=== PATIENT | male | born 1990 | race African-American/Black ===

== ENCOUNTER 2023-01-03 10:24 | Inpatient (IN) | payer OTHER ==
[~2023-01-03] VITALS: Ht 175.3 cm; Wt 88.0 kg
[2023-01-03] VITALS (19 sets, daily range): BP systolic 95–136; BP diastolic 62–94; TEMP 97.7–99.1; O2SAT 100
[2023-01-03 11:10] LABS: BASOPHILS % (AUTO) 0.2 % (0.0-2.0)
[2023-01-03 11:13] LABS: HEMATOCRIT 39 % (39-51); LYMPHOCYTES # (AUTO) 1.2 K/uL (0.8-4.8); LYMPHOCYTES % (AUTO) 6.9 % (20.0-44.0); MEAN CORPUSCULAR HEMOGLOBIN 30 PG (26.0-33.0); MEAN CORPUSCULAR HGB CONC 33 g/dl (31.0-36.0); MEAN CORPUSCULAR VOLUME 90 fL (80-96); MONOCYTES # (AUTO) 0.9 K/uL (0.1-1.30); MONOCYTES % (AUTO) 4.9 % (2.0-12.0); NEUTROPHILS # (AUTO) 15.9 K/uL (1.8-8.9); PLATELET COUNT (AUTO) 304 K/uL (150-450); RED BLOOD CELL COUNT(AUTO) 4.38 MIL/uL (4.5-6.0); RED CELL DISTRIBUTION WIDTH 12.7 % (11.5-15.0); WHITE BLOOD COUNT (AUTO) 18.1 K/uL (4.3-11.0)
[2023-01-03 11:26] LABS: ALANINE AMINOTRANSFERASE 17 U/L (12-78); ALBUMIN 4.2 g/dL (3.4-5.0); ALCOHOL, BLOOD < 3 mg/dL (0-10); ALKALINE PHOSPHATASE 82 U/L (46-116); ASPARTATE AMINOTRANSFERASE 14 U/L (15-37); BILIRUBIN,DIRECT 0.1 mg/dL (0.0-0.2); BILIRUBIN,TOTAL 0.3 mg/dL (0.2-1.0); CALCIUM, SERUM 8.5 mg/dL (8.5-10.1); CARBON DIOXIDE 23 mmol/L (21-32); CHLORIDE 104 mmol/L (98-107); CREATININE 1.2 mg/dL (0.6-1.3); GLUCOSE 166 mg/dL (74-106); POTASSIUM 4.4 mmol/L (3.5-5.1); SODIUM SERUM 137 mmol/L (136-145); TOTAL PROTEIN, SERUM 7.7 g/dL (6.4-8.2); UREA NITROGEN, BLOOD 12 mg/dL (7-18)
[2023-01-03 11:32] LABS: ACETAMINOPHEN <10 ug/ml (10-30); SALICYLATE < 2.3 mg/dL (2.8-20.0)
[2023-01-03] MEDS ORDERED: PROPOFOL 100 ML ONE (11:34)
[2023-01-03] MEDS ORDERED: ROCURONIUM BROMIDE 100 MG/10 ML VIAL IV ONE (12:00)
[2023-01-03] MEDS ORDERED: VANCOMYCIN 1 GM in IV D5W 250 ML IV SCH (12:00)
[2023-01-03] MEDS ORDERED: ETOMIDATE 2 MG/ML VIAL IV ONE (12:00)
[2023-01-03] MEDS ORDERED: PIPERACILLIN /TAZOBACTAM 3.375 G in IV D5W 50 ML IV ONE (12:00)
[2023-01-03] MEDS ORDERED: LEVETIRACETAM (500MG) 1,000 MG in IV NS 0.9% 100 ML IV SCH (12:00)
[2023-01-03] MEDS ORDERED: PROPOFOL 100 ML IV ONE (12:00)
[2023-01-03 12:02] LABS: APPEARANCE,URINE CLEAR (CLEAR); BILIRUBIN,URINE NEGATIVE (NEGATIVE); BLOOD, URINE NEGATIVE Ery/uL (NEGATIVE); COLOR,URINE YELLOW (YELLOW); KETONES,URINE NEGATIVE (NEGATIVE); LEUKOCYTE ESTERASE ,URINE NEGATIVE (NEGATIVE); NITRITE, URINE NEGATIVE (NEGATIVE); PH,URINE 5.5 (5.0-8.0); PROTEIN,URINE NEGATIVE (NEGATIVE); UGLUCOSE NEGATIVE (NEGATIVE); UROBILINOGEN,URINE 0.2 EU/dL (0.2)
[2023-01-03 12:14] LABS: AMPHETAMINE, URINE POSITIVE (NEGATIVE); BARBITURATE, URINE NEGATIVE (NEGATIVE); BENZODIAZEPINE, URINE NEGATIVE (NEGATIVE); CANNABINOID, URINE NEGATIVE (NEGATIVE); COCCAINE, URINE POSITIVE (NEGATIVE); OPIATE, URINE NEGATIVE (NEGATIVE); PHENCYCLIDINE SCREEN,URINE NEGATIVE (NEGATIVE)
[2023-01-03 13:26] LABS: ABG BASE EXCESS -7.5 mmol/L; ABG OXYGEN SATURATION 93.1 % (92.0-98.5); ABG PCO2 41.6 mmHg (35.0-45.0); ABG PH 7.276 (7.350-7.450); ABG PO2 74.1 mmHg (75.0-100.0); ABG TOTAL HEMOGLOBIN 14.8 G/dL (13.5-18.0); COHb 0.7 % (0.5-1.5); MetHb 0.6 % (0.0-1.5); O2Hb 91.9 % (94.0-97.0); PEEP,BG 5 cm H2O; SITE, ABG Right Radial; VENT MODE, BG AC FIO2 100%; VT, ABG 500 mL
[2023-01-03] MEDS ORDERED: ACETAMINOPHEN 325 MG TABLET PO PRN (13:30)
[2023-01-03] MEDS ORDERED: MORPHINE SULFATE INJ 2 MG/ML DISP.SYRIN IV PRN (13:30)
[2023-01-03] MEDS ORDERED: ONDANSETRON HCL/PF 4 MG/2 ML VIAL IVP PRN (13:30)
[2023-01-03] MEDS ORDERED: PROPOFOL 100 ML IV PRN (14:00)
[2023-01-03 14:06] LABS: LACTIC ACID 2.7 mmol/L (0.4-2.0)
[2023-01-03] MEDS: IV NS 0.9% 1,000 ML IV SCH (14:33)
[2023-01-03] MEDS: ENOXAPARIN SODIUM 40 MG/0.4 ML DISP.SYRIN SQ SCH (14:59)
[2023-01-03] MEDS: PROPOFOL 100 ML IV PRN ×5 (15:31→23:57)
[2023-01-03] MEDS: FENTANYL CITRAT IV 2,500 MCG in IV NS 0.9% 200 ML IV PRN (17:15)
[2023-01-03] MEDS: CEFEPIME 2 GM in IV D5W 100 ML IV SCH (20:59)
[2023-01-03] MEDS ORDERED: LEVETIRACETAM (500MG) 500 MG/5 ML VIAL IV ONE (22:16)
[2023-01-03] MEDS: LORAZEPAM INJ 2 MG/ML VIAL IV PRN (23:33)
[2023-01-04] VITALS (43 sets, daily range): BP systolic 86–149; BP diastolic 55–128; TEMP 98.5–102.2; O2SAT 91–100
[2023-01-04] MEDS ORDERED: LEVETIRACETAM (500MG) 1,000 MG in IV NS 0.9% 100 ML IV SCH ×2
[2023-01-04] MEDS ORDERED: VANCOMYCIN 1 GM /D5W 250 ML PB IV ONE (00:46)
[2023-01-04] MEDS ORDERED: VANCOMYCIN 1 GM in IV D5W 250 ML IV SCH (01:00)
[2023-01-04] MEDS: IV NS 0.9% 250 ML IV PRN (01:18)
[2023-01-04] MEDS: IV NS 0.9% 1,000 ML IV SCH ×2 (02:02→16:16)
[2023-01-04] MEDS: PROPOFOL 100 ML IV PRN ×10 (02:54→22:35)
[2023-01-04 04:25] LABS: BASOPHILS % (AUTO) 0.3 % (0.0-2.0); EOSINOPHILS # (AUTO) 0.1 K/uL (0.0-0.7); EOSINOPHILS % (AUTO) 0.7 % (0.0-6.0); HEMATOCRIT 40 % (39-51); HEMOGLOBIN 13.2 g/dL (13.5-17.5); LYMPHOCYTES # (AUTO) 1.7 K/uL (0.8-4.8); LYMPHOCYTES % (AUTO) 11.3 % (20.0-44.0); MEAN CORPUSCULAR HEMOGLOBIN 29 PG (26.0-33.0); MEAN CORPUSCULAR HGB CONC 33 g/dl (31.0-36.0); MEAN CORPUSCULAR VOLUME 90 fL (80-96); MONOCYTES # (AUTO) 0.5 K/uL (0.1-1.30); MONOCYTES % (AUTO) 3.2 % (2.0-12.0); NEUTROPHILS # (AUTO) 12.6 K/uL (1.8-8.9); NEUTROPHILS % (AUTO) 84.5 % (43.0-81.0); PLATELET COUNT (AUTO) 267 K/uL (150-450); RED BLOOD CELL COUNT(AUTO) 4.49 MIL/uL (4.5-6.0); RED CELL DISTRIBUTION WIDTH 12.9 % (11.5-15.0); WHITE BLOOD COUNT (AUTO) 14.9 K/uL (4.3-11.0)
[2023-01-04 04:39] LABS: ALBUMIN 3.2 g/dL (3.4-5.0); BILIRUBIN,TOTAL 0.4 mg/dL (0.2-1.0); CALCIUM, SERUM 8.1 mg/dL (8.5-10.1); CREATININE 1.2 mg/dL (0.6-1.3); MAGNESIUM 1.7 mg/dL (1.8-2.4); PHOSPHORUS 2.8 mg/dL (2.5-4.9); POTASSIUM 3.3 mmol/L (3.5-5.1); TOTAL PROTEIN, SERUM 6.1 g/dL (6.4-8.2)
[2023-01-04] MEDS: LORAZEPAM INJ 2 MG/ML VIAL IV PRN ×3 (05:13→22:26)
[2023-01-04] MEDS: CEFEPIME 2 GM in IV D5W 100 ML IV SCH ×2 (08:06→20:21)
[2023-01-04] MEDS: VANCOMYCIN 1 GM in IV D5W 250 ML IV SCH ×2 (08:55→18:37)
[2023-01-04] MEDS: LEVETIRACETAM (500MG) 1,000 MG in IV NS 0.9% 100 ML IV SCH ×2 (10:09→20:54)
[2023-01-04] MEDS: ACETAMINOPHEN 650 MG/SUPP.RECT RC PRN (10:46)
[2023-01-04] MEDS: Magnesium 1GM/D5W 100ML PREMIX 100 ML IV SCH ×2 (11:14→12:26)
[2023-01-04] MEDS: POTASSIUM CL. PREMIX PERIPHER. 50 ML IV SCH ×2 (12:28→13:33)
[2023-01-04] MEDS: ENOXAPARIN SODIUM 40 MG/0.4 ML DISP.SYRIN SQ SCH (13:36)
[2023-01-04] MEDS ORDERED: ROCURONIUM BROMIDE 50 MG/5 ML IV ONE (17:03)
[2023-01-04] MEDS ORDERED: ETOMIDATE 2 MG/ML VIAL IV ONE (17:03)
[2023-01-04] MEDS: FENTANYL CITRAT IV 2,500 MCG in IV NS 0.9% 200 ML IV PRN (18:03)
[2023-01-05] VITALS (24 sets, daily range): BP systolic 90–129; BP diastolic 54–81; TEMP 97.9–102; O2SAT 92–100
[2023-01-05] MEDS: VANCOMYCIN 1 GM in IV D5W 250 ML IV SCH ×2 (00:36→09:29)
[2023-01-05] MEDS: PROPOFOL 100 ML IV PRN ×11 (00:48→22:36)
[2023-01-05 03:40] LABS: BASOPHILS % (AUTO) 0.4 % (0.0-2.0); EOSINOPHILS # (AUTO) 0.4 K/uL (0.0-0.7); EOSINOPHILS % (AUTO) 3.2 % (0.0-6.0); HEMATOCRIT 39 % (39-51); HEMOGLOBIN 12.7 g/dL (13.5-17.5); LYMPHOCYTES # (AUTO) 1.6 K/uL (0.8-4.8); LYMPHOCYTES % (AUTO) 11.8 % (20.0-44.0); MEAN CORPUSCULAR HEMOGLOBIN 30 PG (26.0-33.0); MEAN CORPUSCULAR HGB CONC 33 g/dl (31.0-36.0); MEAN CORPUSCULAR VOLUME 90 fL (80-96); MONOCYTES # (AUTO) 0.8 K/uL (0.1-1.30); NEUTROPHILS # (AUTO) 10.4 K/uL (1.8-8.9); NEUTROPHILS % (AUTO) 78.6 % (43.0-81.0); PLATELET COUNT (AUTO) 238 K/uL (150-450); RED BLOOD CELL COUNT(AUTO) 4.29 MIL/uL (4.5-6.0); RED CELL DISTRIBUTION WIDTH 12.8 % (11.5-15.0); WHITE BLOOD COUNT (AUTO) 13.2 K/uL (4.3-11.0)
[2023-01-05 04:09] LABS: CREATININE 1.2 mg/dL (0.6-1.3); MAGNESIUM 2.1 mg/dL (1.8-2.4); PHOSPHORUS 2.2 mg/dL (2.5-4.9); POTASSIUM 4.4 mmol/L (3.5-5.1)
[2023-01-05] MEDS: IV NS 0.9% 1,000 ML IV SCH ×2 (04:34→15:58)
[2023-01-05] MEDS: LORAZEPAM INJ 2 MG/ML VIAL IV PRN ×4 (07:26→22:51)
[2023-01-05] MEDS: LEVETIRACETAM (500MG) 1,000 MG in IV NS 0.9% 100 ML IV SCH ×2 (09:29→20:55)
[2023-01-05] MEDS: CEFEPIME 2 GM in IV D5W 100 ML IV SCH ×2 (10:33→21:04)
[2023-01-05 12:59] LABS: ABG BASE EXCESS -3.1 mmol/L; ABG OXYGEN SATURATION 99.1 % (92.0-98.5); ABG PCO2 43.5 mmHg (35.0-45.0); ABG PH 7.336 (7.350-7.450); ABG PO2 406.4 mmHg (75.0-100.0); ABG TOTAL HEMOGLOBIN 15.8 G/dL (13.5-18.0); AaDO2 263.1 mmHg; COHb 0.2 % (0.5-1.5); MetHb 0.3 % (0.0-1.5); O2Hb 98.6 % (94.0-97.0); SITE, ABG Right Radial
[2023-01-05] MEDS: ENOXAPARIN SODIUM 40 MG/0.4 ML DISP.SYRIN SQ SCH (14:32)
[2023-01-05] MEDS ORDERED: Sodium Phosphate 15 MMOL in IV NS 0.9% 245 ML IV ONE (17:00)
[2023-01-05] MEDS: FENTANYL CITRAT IV 2,500 MCG in IV NS 0.9% 200 ML IV PRN (17:53)
[2023-01-05] MEDS: ACETAMINOPHEN 650 MG/SUPP.RECT RC PRN (19:15)
[2023-01-05] MEDS: IV NS 0.9% 250 ML IV PRN (20:56)
[2023-01-06] VITALS (24 sets, daily range): BP systolic 90–144; BP diastolic 52–96; TEMP 98.4–101.2; O2SAT 97–100
[2023-01-06] MEDS: PROPOFOL 100 ML IV PRN ×6 (01:26→23:40)
[2023-01-06] MEDS: ACETAMINOPHEN 650 MG/SUPP.RECT RC PRN ×4 (01:50→21:00)
[2023-01-06] MEDS: LORAZEPAM INJ 2 MG/ML VIAL IV PRN ×2 (01:50→20:35)
[2023-01-06] MEDS: IV NS 0.9% 1,000 ML IV SCH ×2 (04:55→19:49)
[2023-01-06 06:25] LABS: BASOPHILS % (AUTO) 0.1 % (0.0-2.0); EOSINOPHILS # (AUTO) 0.4 K/uL (0.0-0.7); EOSINOPHILS % (AUTO) 4.4 % (0.0-6.0); HEMATOCRIT 34 % (39-51); HEMOGLOBIN 11.2 g/dL (13.5-17.5); LYMPHOCYTES # (AUTO) 1.3 K/uL (0.8-4.8); MEAN CORPUSCULAR HEMOGLOBIN 30 PG (26.0-33.0); MEAN CORPUSCULAR HGB CONC 33 g/dl (31.0-36.0); MEAN CORPUSCULAR VOLUME 90 fL (80-96); MONOCYTES # (AUTO) 0.9 K/uL (0.1-1.30); MONOCYTES % (AUTO) 8.8 % (2.0-12.0); NEUTROPHILS # (AUTO) 7.2 K/uL (1.8-8.9); NEUTROPHILS % (AUTO) 73.7 % (43.0-81.0); PLATELET COUNT (AUTO) 240 K/uL (150-450); RED BLOOD CELL COUNT(AUTO) 3.73 MIL/uL (4.5-6.0); RED CELL DISTRIBUTION WIDTH 13.1 % (11.5-15.0); WHITE BLOOD COUNT (AUTO) 9.8 K/uL (4.3-11.0)
[2023-01-06 06:50] LABS: CALCIUM, SERUM 7.8 mg/dL (8.5-10.1); CREATININE 0.9 mg/dL (0.6-1.3); MAGNESIUM 1.8 mg/dL (1.8-2.4); PHOSPHORUS 2.4 mg/dL (2.5-4.9); POTASSIUM 3.6 mmol/L (3.5-5.1)
[2023-01-06] MEDS ORDERED: VANCOMYCIN 0.75 GM in IV D5W 250 ML IV SCH (08:00)
[2023-01-06] MEDS: CEFEPIME 2 GM in IV D5W 100 ML IV SCH (08:07)
[2023-01-06] MEDS: LEVETIRACETAM (500MG) 1,000 MG in IV NS 0.9% 100 ML IV SCH ×2 (10:08→21:00)
[2023-01-06] MEDS: CEFTRIAXONE 2 G in IV D5W 100 ML IV SCH ×2 (12:51→20:15)
[2023-01-06] MEDS: ACYCLOVIR IV 1 GM in IV D5W 250 ML IV SCH ×2 (13:25→20:35)
[2023-01-06 13:32] LABS: INR 0.96 (0.91-1.10); PARTIAL THROMBOPLASTIN TIME 29.8 SEC (24.3-34.3); PROTHROMBIN TIME 10.1 SECS (9.2-11.1)
[2023-01-06] MEDS: ENOXAPARIN SODIUM 40 MG/0.4 ML DISP.SYRIN SQ SCH (13:37)
[2023-01-06 14:29] LABS: HIV-1 p24 ANTIGEN NON REACTIVE (NONREACTIVE); HIV-1/2 ANTIBODY REACTIVE (NONREACTIVE)
[2023-01-06] MEDS ORDERED: Sodium Phosphate 15 MMOL in IV NS 0.9% 245 ML IV SCH (15:30)
[2023-01-06] MEDS: VANCOMYCIN 0.75 GM in IV D5W 250 ML IV SCH ×2 (16:09→23:14)
[2023-01-06] MEDS: FENTANYL CITRAT IV 2,500 MCG in IV NS 0.9% 200 ML IV PRN (17:16)
[2023-01-06] MEDS ORDERED: JEVITY 1.2 CAL 1,000 ML BOTTLE GT PRN (18:00)
[2023-01-07] VITALS (25 sets, daily range): BP systolic 104–140; BP diastolic 59–99; TEMP 98.9–101; O2SAT 98–100
[2023-01-07] MEDS: ACYCLOVIR IV 1 GM in IV D5W 250 ML IV SCH ×3 (04:32→21:09)
[2023-01-07] MEDS: PROPOFOL 100 ML IV PRN ×6 (04:32→23:13)
[2023-01-07] MEDS: ACETAMINOPHEN 650 MG/SUPP.RECT RC PRN (05:09)
[2023-01-07 05:26] LABS: BASOPHILS % (AUTO) 0.2 % (0.0-2.0); EOSINOPHILS # (AUTO) 0.5 K/uL (0.0-0.7); EOSINOPHILS % (AUTO) 5.9 % (0.0-6.0); HEMATOCRIT 38 % (39-51); HEMOGLOBIN 12.3 g/dL (13.5-17.5); LYMPHOCYTES # (AUTO) 0.9 K/uL (0.8-4.8); LYMPHOCYTES % (AUTO) 10.5 % (20.0-44.0); MEAN CORPUSCULAR HEMOGLOBIN 30 PG (26.0-33.0); MEAN CORPUSCULAR HGB CONC 33 g/dl (31.0-36.0); MEAN CORPUSCULAR VOLUME 91 fL (80-96); MONOCYTES # (AUTO) 0.9 K/uL (0.1-1.30); MONOCYTES % (AUTO) 10.4 % (2.0-12.0); NEUTROPHILS # (AUTO) 6.1 K/uL (1.8-8.9); PLATELET COUNT (AUTO) 240 K/uL (150-450); RED BLOOD CELL COUNT(AUTO) 4.11 MIL/uL (4.5-6.0); WHITE BLOOD COUNT (AUTO) 8.3 K/uL (4.3-11.0)
[2023-01-07 05:43] LABS: CALCIUM, SERUM 8.3 mg/dL (8.5-10.1); CREATININE 0.9 mg/dL (0.6-1.3); MAGNESIUM 1.8 mg/dL (1.8-2.4); PHOSPHORUS 2.3 mg/dL (2.5-4.9); POTASSIUM 3.5 mmol/L (3.5-5.1)
[2023-01-07 07:07] LABS: RAPID PLASMA REAGIN QUAL. Non Reactive (Non Reactive)
[2023-01-07 08:07] LABS: HEPATITIS B CORE AB, TOTAL Negative (Negative)
[2023-01-07] MEDS: VANCOMYCIN 0.75 GM in IV D5W 250 ML IV SCH ×2 (08:16→18:50)
[2023-01-07] MEDS: LEVETIRACETAM (500MG) 1,000 MG in IV NS 0.9% 100 ML IV SCH ×2 (09:31→21:09)
[2023-01-07] MEDS: CEFTRIAXONE 2 G in IV D5W 100 ML IV SCH ×2 (10:36→20:15)
[2023-01-07] MEDS: ENOXAPARIN SODIUM 40 MG/0.4 ML DISP.SYRIN SQ SCH (11:18)
[2023-01-07] MEDS: IV NS 0.9% 1,000 ML IV PRN (12:53)
[2023-01-07] MEDS: ACETAMINOPHEN 650 MG/20.3 ML UDC NG PRN ×2 (13:37→21:09)
[2023-01-07 13:48] LABS: ABG BASE EXCESS -1.1 mmol/L; ABG OXYGEN SATURATION 97.5 % (92.0-98.5); ABG PH 7.362 (7.350-7.450); ABG TOTAL HEMOGLOBIN 12.4 G/dL (13.5-18.0); AaDO2 121.6 mmHg; COHb 0.3 % (0.5-1.5); MetHb 0.2 % (0.0-1.5); SITE, ABG Right Radial
[2023-01-07] MEDS ORDERED: AMPHOTERICIN B LIPOSOME IV ONE (15:00)
[2023-01-07] MEDS ORDERED: D5W IV ONE (15:00)
[2023-01-07] MEDS ORDERED: NEUTRA PHOS 1 POWD.PACKET NG ONE (16:00)
[2023-01-07 17:13] LABS: CSF GLUCOSE 74 mg/dL (40-70); CSF PROTEIN 31.39 mg/dL (15-45)
[2023-01-07 17:35] LABS: CSF APPEARANCE CLEAR (CLEAR); CSF COLOR COLORLESS (COLORLESS)
[2023-01-07] MEDS: FENTANYL CITRAT IV 2,500 MCG in IV NS 0.9% 200 ML IV PRN (17:37)
[2023-01-07 17:47] LABS: CSF WHITE BLOOD CELL COUNT 10 /cumm (0-5)
[2023-01-07 17:49] LABS: CSF WHITE BLOOD CELL COUNT 3 /cumm (0-5)
[2023-01-07] MEDS: LORAZEPAM INJ 2 MG/ML VIAL IV PRN (20:39)
[2023-01-07] MEDS ORDERED: MIDAZOLAM HCL 50 MG in IV NS 0.9% 40 ML IV PRN (21:30)
[2023-01-08] VITALS (24 sets, daily range): BP systolic 92–124; BP diastolic 52–88; TEMP 98.3–100; O2SAT 99–100
[2023-01-08] MEDS: LORAZEPAM INJ 2 MG/ML VIAL IV PRN ×2 (00:46→20:17)
[2023-01-08] MEDS ORDERED: VANCOMYCIN 0.75 GM in IV D5W 250 ML IV SCH (03:00)
[2023-01-08] MEDS: PROPOFOL 100 ML IV PRN ×6 (03:17→21:25)
[2023-01-08] MEDS: ACYCLOVIR IV 1 GM in IV D5W 250 ML IV SCH ×3 (04:17→20:51)
[2023-01-08 05:07] LABS: BASOPHILS % (AUTO) 0.2 % (0.0-2.0); EOSINOPHILS # (AUTO) 0.5 K/uL (0.0-0.7); EOSINOPHILS % (AUTO) 7.3 % (0.0-6.0); HEMATOCRIT 32 % (39-51); HEMOGLOBIN 10.7 g/dL (13.5-17.5); LYMPHOCYTES # (AUTO) 1.2 K/uL (0.8-4.8); LYMPHOCYTES % (AUTO) 15.6 % (20.0-44.0); MEAN CORPUSCULAR HEMOGLOBIN 30 PG (26.0-33.0); MEAN CORPUSCULAR HGB CONC 34 g/dl (31.0-36.0); MEAN CORPUSCULAR VOLUME 88 fL (80-96); MONOCYTES # (AUTO) 0.8 K/uL (0.1-1.30); MONOCYTES % (AUTO) 10.3 % (2.0-12.0); NEUTROPHILS # (AUTO) 4.9 K/uL (1.8-8.9); NEUTROPHILS % (AUTO) 66.6 % (43.0-81.0); PLATELET COUNT (AUTO) 289 K/uL (150-450); RED BLOOD CELL COUNT(AUTO) 3.59 MIL/uL (4.5-6.0); RED CELL DISTRIBUTION WIDTH 12.8 % (11.5-15.0); WHITE BLOOD COUNT (AUTO) 7.4 K/uL (4.3-11.0)
[2023-01-08 05:08] LABS: *BASOS 0 % (Not Estab.); *EOS 7 % (Not Estab.); *EOS, ABSOLUTE 0.3 x10E3/uL (0.0-0.4); *HCT 34.1 % (37.5-51.0); *HGB 11.7 g/dL (13.0-17.7); *IMMATURE GRANULOCYTES 0 % (Not Estab.); *LYMPHOCYTES 23 % (Not Estab.); *LYMPHS, ABSOLUTE 1.1 x10E3/uL (0.7-3.1); *MCH 30.7 pg (26.6-33.0); *MCHC 34.3 g/dL (31.5-35.7); *MCV 90 fL (79-97); *MONOCYTES 5 % (Not Estab.); *MONOS, ABSOLUTE 0.3 x10E3/uL (0.1-0.9); *NEUTROPHILS 65 % (Not Estab.); *NEUTROPHILS, ABSOLUTE 3.1 x10E3/uL (1.4-7.0); *PLT 287 x10E3/uL (150-450); *RBC 3.81 x10E6/uL (4.14-5.80); *RDW 12.4 % (11.6-15.4); *WBC 4.9 x10E3/uL (3.4-10.8)
[2023-01-08 05:22] LABS: CALCIUM, SERUM 8.1 mg/dL (8.5-10.1); CREATININE 0.8 mg/dL (0.6-1.3); MAGNESIUM 1.8 mg/dL (1.8-2.4); PHOSPHORUS 2.5 mg/dL (2.5-4.9); POTASSIUM 3.1 mmol/L (3.5-5.1)
[2023-01-08] MEDS: IV NS 0.9% 1,000 ML IV PRN ×2 (05:41→18:51)
[2023-01-08] MEDS: CEFTRIAXONE 2 G in IV D5W 100 ML IV SCH ×2 (08:53→20:18)
[2023-01-08] MEDS: LEVETIRACETAM (500MG) 1,000 MG in IV NS 0.9% 100 ML IV SCH ×2 (09:50→20:18)
[2023-01-08] MEDS: VANCOMYCIN 1 GM in IV D5W 250 ML IV SCH ×2 (10:46→18:50)
[2023-01-08] MEDS: POTASSIUM CHLORIDE 20 MEQ POWDER PACKET GT SCH (11:53)
[2023-01-08] MEDS: ACETAMINOPHEN 650 MG/20.3 ML UDC NG PRN ×2 (13:46→20:51)
[2023-01-08] MEDS: ENOXAPARIN SODIUM 40 MG/0.4 ML DISP.SYRIN SQ SCH (14:50)
[2023-01-08] MEDS ORDERED: AMPHOTERICIN B LIPOSOME IV SCH (15:00)
[2023-01-08] MEDS ORDERED: D5W IV SCH (15:00)
[2023-01-08 15:06] LABS: *% CD 4 POS. LYMPH 37.2 % (30.8-58.5); *% CD 8 POS. LYMPH 37.6 % (12.0-35.5); *ABSOLUTE CD 4 HELPER 409 /uL (359-1519); *ABSOLUTE CD 8 SUPPRESSOR 414 /uL (109-897); *CD4/CD8 RATIO 0.99 (0.92-3.72)
[2023-01-08] MEDS: IV NS 0.9% 250 ML IV PRN (16:16)
[2023-01-08] MEDS: JEVITY 1.2 CAL 1,000 ML BOTTLE GT PRN (17:57)
[2023-01-08] MEDS: FENTANYL CITRAT IV 2,500 MCG in IV NS 0.9% 200 ML IV PRN (17:58)
[2023-01-09] VITALS (24 sets, daily range): BP systolic 98–129; BP diastolic 56–96; TEMP 98.9–101.1; O2SAT 95–100
[2023-01-09] MEDS: VANCOMYCIN 1 GM in IV D5W 250 ML IV SCH ×2 (00:14→09:52)
[2023-01-09] MEDS: PROPOFOL 100 ML IV PRN ×7 (01:10→23:27)
[2023-01-09] MEDS: ACETAMINOPHEN 650 MG/20.3 ML UDC NG PRN ×2 (04:19→12:41)
[2023-01-09] MEDS: ACYCLOVIR IV 1 GM in IV D5W 250 ML IV SCH ×3 (04:20→21:24)
[2023-01-09] MEDS: IV NS 0.9% 1,000 ML IV PRN ×2 (06:02→19:19)
[2023-01-09 06:03] LABS: BASOPHILS % (AUTO) 0.4 % (0.0-2.0); EOSINOPHILS # (AUTO) 0.5 K/uL (0.0-0.7); EOSINOPHILS % (AUTO) 6.1 % (0.0-6.0); HEMATOCRIT 33 % (39-51); LYMPHOCYTES # (AUTO) 1.8 K/uL (0.8-4.8); LYMPHOCYTES % (AUTO) 20.4 % (20.0-44.0); MEAN CORPUSCULAR HEMOGLOBIN 30 PG (26.0-33.0); MEAN CORPUSCULAR HGB CONC 33 g/dl (31.0-36.0); MEAN CORPUSCULAR VOLUME 89 fL (80-96); MONOCYTES # (AUTO) 0.9 K/uL (0.1-1.30); MONOCYTES % (AUTO) 9.6 % (2.0-12.0); NEUTROPHILS # (AUTO) 5.6 K/uL (1.8-8.9); NEUTROPHILS % (AUTO) 63.5 % (43.0-81.0); PLATELET COUNT (AUTO) 349 K/uL (150-450); RED BLOOD CELL COUNT(AUTO) 3.68 MIL/uL (4.5-6.0); RED CELL DISTRIBUTION WIDTH 13.1 % (11.5-15.0); WHITE BLOOD COUNT (AUTO) 8.9 K/uL (4.3-11.0)
[2023-01-09 06:15] LABS: CALCIUM, SERUM 8.4 mg/dL (8.5-10.1); CREATININE 0.9 mg/dL (0.6-1.3); MAGNESIUM 1.9 mg/dL (1.8-2.4); PHOSPHORUS 4.2 mg/dL (2.5-4.9); POTASSIUM 3.8 mmol/L (3.5-5.1)
[2023-01-09] MEDS: CEFTRIAXONE 2 G in IV D5W 100 ML IV SCH ×2 (08:23→20:05)
[2023-01-09] MEDS: LEVETIRACETAM (500MG) 1,000 MG in IV NS 0.9% 100 ML IV SCH ×2 (09:19→20:48)
[2023-01-09] MEDS: JEVITY 1.2 CAL 1,000 ML BOTTLE GT PRN (13:46)
[2023-01-09] MEDS: ENOXAPARIN SODIUM 40 MG/0.4 ML DISP.SYRIN SQ SCH (14:34)
[2023-01-09 15:06] LABS: *HIV-1 RNA BY PCR <20 copies/mL (.)
[2023-01-09] MEDS: VANCOMYCIN 1.25 GM in IV D5W 250 ML IV SCH ×2 (16:02→23:31)
[2023-01-09] MEDS: FENTANYL CITRAT IV 2,500 MCG in IV NS 0.9% 200 ML IV PRN (18:01)
[2023-01-10] VITALS (24 sets, daily range): BP systolic 100–154; BP diastolic 56–128; TEMP 98.8–100.3; O2SAT 93–100
[2023-01-10] MEDS: ACETAMINOPHEN 650 MG/20.3 ML UDC NG PRN ×2 (02:02→21:06)
[2023-01-10] MEDS: PROPOFOL 100 ML IV PRN (03:11)
[2023-01-10 04:52] LABS: BASOPHILS # (AUTO) 0.1 K/uL (0.0-0.2); BASOPHILS % (AUTO) 1.3 % (0.0-2.0); EOSINOPHILS # (AUTO) 0.5 K/uL (0.0-0.7); EOSINOPHILS % (AUTO) 6.1 % (0.0-6.0); HEMATOCRIT 32 % (39-51); HEMOGLOBIN 10.5 g/dL (13.5-17.5); LYMPHOCYTES # (AUTO) 1.1 K/uL (0.8-4.8); LYMPHOCYTES % (AUTO) 12.6 % (20.0-44.0); MEAN CORPUSCULAR HEMOGLOBIN 30 PG (26.0-33.0); MEAN CORPUSCULAR HGB CONC 33 g/dl (31.0-36.0); MEAN CORPUSCULAR VOLUME 90 fL (80-96); MONOCYTES # (AUTO) 0.6 K/uL (0.1-1.30); MONOCYTES % (AUTO) 7.3 % (2.0-12.0); NEUTROPHILS # (AUTO) 6.2 K/uL (1.8-8.9); NEUTROPHILS % (AUTO) 72.7 % (43.0-81.0); PLATELET COUNT (AUTO) 383 K/uL (150-450); RED BLOOD CELL COUNT(AUTO) 3.51 MIL/uL (4.5-6.0); RED CELL DISTRIBUTION WIDTH 13.3 % (11.5-15.0); WHITE BLOOD COUNT (AUTO) 8.5 K/uL (4.3-11.0)
[2023-01-10 05:03] LABS: ABG BASE EXCESS 2.3 mmol/L; ABG OXYGEN SATURATION 99.1 % (92.0-98.5); ABG PCO2 39.5 mmHg (35.0-45.0); ABG PH 7.444 (7.350-7.450); ABG PO2 416.2 mmHg (75.0-100.0); ABG TOTAL HEMOGLOBIN 12.1 G/dL (13.5-18.0); AaDO2 257.3 mmHg; MetHb 0.3 % (0.0-1.5); O2Hb 98.8 % (94.0-97.0); SITE, ABG Left Radial; VENT MODE, BG NRB 100%
[2023-01-10 05:18] LABS: CALCIUM, SERUM 8.6 mg/dL (8.5-10.1); CREATININE 0.8 mg/dL (0.6-1.3); PHOSPHORUS 3.8 mg/dL (2.5-4.9); POTASSIUM 3.8 mmol/L (3.5-5.1)
[2023-01-10] MEDS: ACYCLOVIR IV 1 GM in IV D5W 250 ML IV SCH ×5 (05:42→21:07)
[2023-01-10] MEDS: VANCOMYCIN 1.25 GM in IV D5W 250 ML IV SCH ×4 (07:55→23:52)
[2023-01-10] MEDS: IV NS 0.9% 1,000 ML IV PRN ×2 (07:56→09:44)
[2023-01-10] MEDS: LEVETIRACETAM (500MG) 1,000 MG in IV NS 0.9% 100 ML IV SCH ×4 (09:00→21:15)
[2023-01-10] MEDS ORDERED: MISCELLANEOUS MED 1 EA EA XX ONE (10:00)
[2023-01-10 11:07] LABS: VDRL, CSF Non Reactive (Non Rea:<1:1)
[2023-01-10] MEDS: CEFTRIAXONE 2 G in IV D5W 100 ML IV SCH ×2 (12:36→20:41)
[2023-01-10] MEDS ORDERED: BIKTARVY PO SCH (13:02)
[2023-01-10] MEDS: ENOXAPARIN SODIUM 40 MG/0.4 ML DISP.SYRIN SQ SCH (14:23)
[2023-01-10 17:06] LABS: *CRYPTOCOCCUS AG, CSF Negative (Negative)
[2023-01-11] VITALS (20 sets, daily range): BP systolic 101–135; BP diastolic 65–100; TEMP 98.4–99.8; O2SAT 92–100
[2023-01-11 03:07] LABS: CMV, IgM <30.0 AU/mL (0.0-29.9)
[2023-01-11 04:37] LABS: BASOPHILS % (AUTO) 0.5 % (0.0-2.0); EOSINOPHILS # (AUTO) 0.1 K/uL (0.0-0.7); EOSINOPHILS % (AUTO) 1.5 % (0.0-6.0); HEMATOCRIT 35 % (39-51); HEMOGLOBIN 11.5 g/dL (13.5-17.5); LYMPHOCYTES % (AUTO) 22.2 % (20.0-44.0); MEAN CORPUSCULAR HEMOGLOBIN 30 PG (26.0-33.0); MEAN CORPUSCULAR HGB CONC 33 g/dl (31.0-36.0); MEAN CORPUSCULAR VOLUME 89 fL (80-96); MONOCYTES # (AUTO) 1.1 K/uL (0.1-1.30); MONOCYTES % (AUTO) 11.8 % (2.0-12.0); NEUTROPHILS # (AUTO) 5.7 K/uL (1.8-8.9); PLATELET COUNT (AUTO) 510 K/uL (150-450); WHITE BLOOD COUNT (AUTO) 8.9 K/uL (4.3-11.0)
[2023-01-11 05:07] LABS: CREATININE 0.9 mg/dL (0.6-1.3); PHOSPHORUS 3.5 mg/dL (2.5-4.9); POTASSIUM 3.4 mmol/L (3.5-5.1)
[2023-01-11] MEDS: ACYCLOVIR IV 1 GM in IV D5W 250 ML IV SCH ×2 (05:28→12:31)
[2023-01-11] MEDS: VANCOMYCIN 1.25 GM in IV D5W 250 ML IV SCH (07:50)
[2023-01-11 08:06] LABS: *HCV QUANTITATION HCV Not Detected IU/mL (.)
[2023-01-11] MEDS: IV NS 0.9% 1,000 ML IV PRN (09:08)
[2023-01-11] MEDS: LEVETIRACETAM (500MG) 1,000 MG in IV NS 0.9% 100 ML IV SCH (10:30)
[2023-01-11] MEDS: CEFTRIAXONE 2 G in IV D5W 100 ML IV SCH (11:04)
[2023-01-11] MEDS: POTASSIUM CL. PREMIX PERIPHER. 50 ML IV SCH ×2 (11:45→12:30)
[2023-01-11] MEDS: ENOXAPARIN SODIUM 40 MG/0.4 ML DISP.SYRIN SQ SCH (13:15)
== END 2023-01-11 20:30 | disposition left against medical advice (07) | DRG 917 ==
LOC: ER 10:33 → ICU 13:26 → MEDSG1 01-11 17:12
PROVIDERS: ADMIT Internal Medicine; ATTEND Internal Medicine
PROC: 0BH17EZ Insertion of Endotracheal Airway into Trachea, Via Natural or Artificial Opening (ICD-10-PCS; principal; 2023-01-03)
PROC: 5A1955Z Respiratory Ventilation, Greater than 96 Consecutive Hours (ICD-10-PCS; 2023-01-03)
PROC: 05H533Z Insertion of Infusion Device into Right Subclavian Vein, Percutaneous Approach (ICD-10-PCS; 2023-01-06)
PROC: B546ZZA Ultrasonography of Right Subclavian Vein, Guidance (ICD-10-PCS; 2023-01-06)
PROC: 009U3ZX Drainage of Spinal Canal, Percutaneous Approach, Diagnostic (ICD-10-PCS; 2023-01-07)
PROC: B01BYZZ Fluoroscopy of Spinal Cord using Other Contrast (ICD-10-PCS; 2023-01-07)
PROC: 05H533Z Insertion of Infusion Device into Right Subclavian Vein, Percutaneous Approach (ICD-10-PCS; 2023-01-10)
PROC: B546ZZA Ultrasonography of Right Subclavian Vein, Guidance (ICD-10-PCS; 2023-01-10)
PROC: 05H633Z Insertion of Infusion Device into Left Subclavian Vein, Percutaneous Approach (ICD-10-PCS; 2023-01-10)
PROC: B547ZZA Ultrasonography of Left Subclavian Vein, Guidance (ICD-10-PCS; 2023-01-10)
DX: T40.5X1A Poisoning by cocaine, accidental (unintentional), initial encounter (principal); A41.9 Sepsis, unspecified organism; J69.0 Pneumonitis due to inhalation of food and vomit; J96.01 Acute respiratory failure with hypoxia; R65.20 Severe sepsis without septic shock; G92.8 Other toxic encephalopathy; E44.1 Mild protein-calorie malnutrition; Y92.009 Unspecified place in unspecified non-institutional (private) residence as the place of occurrence of the external cause; D64.9 Anemia, unspecified; E83.42 Hypomagnesemia; E87.6 Hypokalemia; Z90.81 Acquired absence of spleen; F19.10 Other psychoactive substance abuse, uncomplicated; Z68.28 Body mass index [BMI] 28.0-28.9, adult; T43.621A Poisoning by amphetamines, accidental (unintentional), initial encounter; B19.20 Unspecified viral hepatitis C without hepatic coma
CPT/HCPCS: 31720; 36410; 36415; 36600; 62270; 70450-TC; 71045-TC; 80048-TC; 80053-TC; 80076-TC; 80202-TC; 82550-TC; 82803-TC; 82962-TC; 83605-TC; 83735-TC; 84100-TC; 84478-TC; 85025-TC; 85730-TC; 86360; 86480; 86592; 86593; 86644; 86645; 86694; 86704; 86777; 86778; 86803; 87040-TC; 87081-TC; 87086-TC; 87102-TC; 87116; 87206; 87340; 87522; 87536; 87806; 87899; 89051-TC; 92526; 92611-TC; 94002-TC; 94003-TC; 94799-TC; 95819-TC; 97112-TC; 97116-TC; 97530-TC; A4217; A4223; A4349; A9563; G0378; G0480; J0133; J0287; J0692; J0696; J1650; J1953; J2060; J2543; J3010; J3370; J3475; J3480; J3490; J7030; J7040; J7050; J7060